=== PATIENT | female | born 1985 | race Caucasian/White ===

== ENCOUNTER 2019-01-15 11:48 | Observation (INO) ==
[2019-01-14 14:43] LABS: Eosinophils % 1.2 %; Hematocrit 35.7 % (35.3-44.9); Hemoglobin 12.1 g/dL (11.5-15.4); Immature Granulocytes % 0.7 % (0-4); Lymphocytes % 23.4 %; Mean Corpuscular HGB Conc 33.9 g/dL (31.6-35.5); Mean Corpuscular Hemoglobin 30.7 pg (28.0-33.3); Mean Corpuscular Volume 90.6 fL (83.0-100.0); Mean Platelet Volume 12.5 fL (9.4-12.4); Monocytes % 8.9 %; Platelet Count 121 K/mcL (140-400); Red Blood Count 3.94 M/mcL (3.82-4.97); Segmented Neutrophils % 65.7 %
[2019-01-14 14:43] LABS: Protein/Creatinine Ratio,Urine 0.16 mg/mg (0.00-0.20)
[2019-01-14 14:44] LABS: Basophils % 0.1 %; Eosinophils # 0.1 K/mcL (0.0-0.6); Lymphocytes # 2.2 K/mcL (0.6-4.6); Monocytes # 0.8 K/mcL (0.0-1.3); Neutrophils # 6.1 K/mcL (1.6-8.9)
[2019-01-14 14:53] LABS: Alanine Aminotransferase 31 Units/L (7-52); Aspartate Amino Transferase 15 Units/L (13-39); BUN/Creatinine Ratio 20 (6-26); Blood Urea Nitrogen 10 mg/dL (6-20); Lactate Dehydrogenase 152 Units/L (140-271); Uric Acid 3.8 mg/dL (2.3-7.6); eGFR For Non-African Americans > 60 (> 60)
--- NOTE | 2019-01-14 16:35 | OB/GYN Progress Note ---
Date of Encounter: 01/14/19 Time of Encounter: 16:31 - Assessment and Plan (1) Gestational hypertension Current Visit: Yes Status: Acute Pre-Eclampsia labs WNL NST reactive Labetalol PO Steroids Continuous monitoring 24 hour urine pending Anticipate discharge home with biweekly NSTs, PO Labetalol, and anticipate delivery at 37 weeks POC per consult with Dr White Qualifiers: Trimester: third trimester Qualified Code(s): O13.3 - Gestational [-induced] hypertension without significant proteinuria, third trimester (2) 34 weeks gestation of Current Visit: Yes Status: Acute (3) NST (non-stress test) reactive Current Visit: Yes Status: Acute (4) Gestational thrombocytopenia without hemorrhage Current Visit: Yes Status: Acute Stable from early Qualifiers: Trimester: third trimester Qualified Code(s): O99.113 - Other diseases of the blood and blood-forming organs and certain disorders involving the immune mechanism complicating , third trimester; D69.6 - Thrombocytopenia, unspecified Subjective - Subjective Principal diagnosis: HTN Interval history: Ms Carmona, dolores at 34 weeks 4 days presents to labor and delivery triage with c/o feeling flushed and contractions every 10 minutes of 3 hours. She has had pre-eclampsia with a 37 week primary with her last (c/s related to corneal transplants). She has had no complications with this . She states positive movement. She denies headaches, vision changes, epigastric pain, leaking of fluid, vaginal discharge and bleeding. Antepartum ROS: movement normal, no loss of fluid, no vaginal bleeding, no contractions Objective - Vital Signs Vital Signs: Intake and Output 01/14/19 01/14/19 01/14/19 07:59 15:59 23:59 Other: Weight 133.3 kg Patient Weight 01/14/19 23:59 Weight 133.3 kg - Exam FHR comments: Irregular contractions FHTs baseline 140's with moderate variability and 15 x 15 accels with no decels. Auscultation: bilateral: normal Abdomen: Present: normal appearance, soft, gravid. Absent: tenderness Uterus: Present: normal. Absent: firm, tenderness Cervical dilation: closed Cervix effacement: thick station: high - Labs Labs: Abnormal lab results Plt Count 121 K/mcL (140-400) L 01/14/19 14:17 MPV 12.5 fL (9.4-12.4) H 01/14/19 14:17 0.51 mg/dL (0.60-1.20) L 01/14/19 14:17 21 mg/dL (1-14) H 01/14/19 14:11
[2019-01-15 09:03] LABS: Amphetamine Screen,Urine Negative ng/mL (Cutoff=1000); Barbiturate Screen,Urine Negative ng/mL (Cutoff=200); Benzodiazepines Screen,Urine Negative ng/mL (Cutoff=200); Cannabinoid Screen,Urine Negative ng/mL (Cutoff = 50); Cocaine Screen,Urine Negative ng/mL (Cutoff= 300); Opiate Screen,Urine Negative ng/mL (Cutoff=300); Phencyclidine Screen,Urine Negative ng/mL (Cutoff=25)
[~2019-01-15 11:48] MED LIST: *HR* Labetalol 20 MG/4 ML SYRINGE IVP STA; Acetaminophen 325 MG TABLET PO PRN; Betamethasone Acet/SodPhos 6 MG/ML MDV IM SCH; Ondansetron ODT 4 MG TAB.RAPDIS SL PRN; Ringers Solution, Lactated 500 ML ONE
[2019-01-15 19:27] LABS: Protein/Creatinine Ratio,Urine 0.11 mg/mg (0.00-0.20)
[2019-01-15 20:52] LABS: Total Volume 24 Hour,Urine 0.7 Liters (0.60-1.60)
== END 2019-01-15 13:28 | disposition home or self-care (01) ==
LOC: 1NENULAB
PROVIDERS: ADMIT Advanced Practice Midwife; ATTEND Advanced Practice Midwife

== ENCOUNTER → 2019-01-15 17:43 | Observation (INO) ==
[~2019-01-15 17:43] MED LIST changes: -*HR* Labetalol 20 MG/4 ML SYRINGE IVP STA; -Acetaminophen 325 MG TABLET PO PRN; -Ondansetron ODT 4 MG TAB.RAPDIS SL PRN; -Ringers Solution, Lactated 500 ML ONE
--- NOTE | 2019-01-21 13:34 | Event Note ---
Date of Encounter: 01/15/19 Time of Encounter: 18:05 Patient arrived solely for second dose of Celestone. Received dose as ordered and was discharged home in satisfactory condition.
== END | disposition home or self-care (01) ==
LOC: 1NENULAB
PROVIDERS: ADMIT Obstetrics & Gynecology; ATTEND Obstetrics & Gynecology

== ENCOUNTER → 2019-01-16 16:42 | Observation (INO) ==
[2019-01-16 11:22] VITALS: BP 177/98
[2019-01-16 11:57] LABS: Amphetamine Screen,Urine Negative ng/mL (Cutoff=1000); Barbiturate Screen,Urine Negative ng/mL (Cutoff=200); Benzodiazepines Screen,Urine Negative ng/mL (Cutoff=200); Cannabinoid Screen,Urine Negative ng/mL (Cutoff = 50); Cocaine Screen,Urine Negative ng/mL (Cutoff= 300); Opiate Screen,Urine Negative ng/mL (Cutoff=300); Phencyclidine Screen,Urine Negative ng/mL (Cutoff=25); Protein/Creatinine Ratio,Urine 0.23 mg/mg (0.00-0.20)
[2019-01-16 12:05] LABS: Basophils % 0.2 %; Hematocrit 32.3 % (35.3-44.9); Hemoglobin 10.8 g/dL (11.5-15.4); Immature Granulocytes % 1.1 % (0-4); Lymphocytes # 1.7 K/mcL (0.6-4.6); Lymphocytes % 16.1 %; Mean Corpuscular HGB Conc 33.4 g/dL (31.6-35.5); Mean Corpuscular Hemoglobin 30.8 pg (28.0-33.3); Mean Platelet Volume 12.7 fL (9.4-12.4); Monocytes # 0.9 K/mcL (0.0-1.3); Monocytes % 8.2 %; Platelet Count 115 K/mcL (140-400); Red Blood Count 3.51 M/mcL (3.82-4.97); Red Cell Distribution Width 12.9 % (11.5-14.5); Segmented Neutrophils % 74.4 %
[2019-01-16 12:08] LABS: Alanine Aminotransferase 34 Units/L (7-52); Aspartate Amino Transferase 16 Units/L (13-39); BUN/Creatinine Ratio 23 (6-26); Blood Urea Nitrogen 13 mg/dL (6-20); Lactate Dehydrogenase 132 Units/L (140-271); Uric Acid 4.2 mg/dL (2.3-7.6); eGFR For Non-African Americans > 60 (> 60)
--- NOTE | 2019-01-16 16:29 | Discharge Summary ---
Outpatient Proc Discharge Plan - Plan Additional Instructions: LABOR AND DELIVERY DISCHARGE INSTRUCTIONS Signs and Symptoms to be Reported to your Doctor Immediately: * Sudden gush, continuous or intermittent lead of fluid from vagina (note the time of gush and color of fluid) * Onset of bright red vaginal bleeding with or without pain (if you had a vaginal exam during this visit you may notice some dark red spotting. This is normal.) * Lower abdominal cramping or backache that is premenstrual-like feeling. * More than 6 contractions in one hour. * Burning during urination, having to urinate more frequently or pain in your mid-back. * A change in the baby's activity. This could be an increase or decrease in activity. * Severe headache which does not go away with tylenol. * Sudden swelling in the face, hands, arms and/or legs. * Upper abdominal pain - sometimes associated with heartburn or nausea and is not relieved by Maalox, Mylanta or Tums. * Dizziness or blurred vision or visual disturbances (seeing stars/lights). * Kick Counts One hour after a meal, lay down on one side in a quiet place. Count the number of santos the baby moves during an hour. If less than 6 movements, notify your physician. Diet: *Force fluids - 8-10 tall glasses of fluid per day. May include popsicles and jello. *Limit caffeine - this includes chocolate, coffee, tea, any soft drink containing such as all maisha, Noah Yellow and Mountain Dew Prescriptions: Labetalol [Trandate] 100 mg PO BID #60 tablet Home Medications: Vitamin Tablet 1 tab PO DAILY 01/14/19 [History] Labetalol [Trandate] 100 mg PO BID #60 tablet 01/16/19 [Rx]
--- NOTE | 2019-01-16 16:31 | OB/GYN Progress Note ---
Date of Encounter: 01/16/19 Time of Encounter: 16:29 - Assessment and Plan (1) 35 weeks gestation of Current Visit: Yes Status: Acute (2) Gestational hypertension Current Visit: Yes Status: Acute Patient started on Labetolol 100 mg po bid with good response. She is to continue this at home. She is again given pre-e precautions and told to call or return for severe headache not relieved by Tylenol, visual changes, RUQ pain, Nausea/vomiting, decreased movement, vaginal bleeding, or leaking fluid. She will followup on Sunday with NST, ultrasound, and visit with Dr. Arana. (3) Gestational thrombocytopenia without hemorrhage Current Visit: No Status: Chronic Stable on labs today Qualifiers: Trimester: third trimester Qualified Code(s): O99.113 - Other diseases of the blood and blood-forming organs and certain disorders involving the immune mechanism complicating , third trimester; D69.6 - Thrombocytopenia, unspecified (4) NST (non-stress test) reactive Current Visit: No Status: Acute Baseline 120, reactive Subjective - Subjective Interval history: Patient presents for complaint of headache. She was seen in the office today and sent over for pre-e labs and evaluation with prolonged monitoring. She states her headache has resolved with the tylenol. She also reports the headache was not as severe as one she had experienced earlier this week. She denies any leaking fluid or vaginal bleeding. She reports good movement. Antepartum ROS: movement normal, no loss of fluid, no vaginal bleeding, no contractions Objective - Vital Signs Vital Signs: Vital Signs Temp Pulse Resp BP 01/16/19 11:19 98.7 F 103 20 see OB flow sheet Intake and Output 01/16/19 01/16/19 01/16/19 07:59 15:59 23:59 Other: Weight 133.6 kg Patient Weight 01/16/19 23:59 Weight 133.6 kg - Exam FHR: category 1 - Labs Labs: Abnormal lab results RBC 3.51 M/mcL (3.82-4.97) L 01/16/19 11:30 Hgb 10.8 g/dL (11.5-15.4) L 01/16/19 11:30 Hct 32.3 % (35.3-44.9) L 01/16/19 11:30 Plt Count 115 K/mcL (140-400) L 01/16/19 11:30 MPV 12.7 fL (9.4-12.4) H 01/16/19 11:30 0.57 mg/dL (0.60-1.20) L 01/16/19 11:30 132 Units/L (140-271) L 01/16/19 11:30 Protein/Creatinin Ratio 0.23 mg/mg (0.00-0.20) H 01/16/19 11:30 38 mg/dL (1-14) H 01/16/19 11:30 - Allied health notes Allied health notes reviewed: nursing
[~2019-01-16 16:42] MED LIST changes: +Acetaminophen 325 MG TABLET PO ONE; -Betamethasone Acet/SodPhos 6 MG/ML MDV IM SCH
== END | disposition home or self-care (01) ==
LOC: 1NENULAB
PROVIDERS: ADMIT Advanced Practice Midwife; ATTEND Advanced Practice Midwife

== ENCOUNTER 2019-02-02 07:00 | Inpatient (IN) ==
[2019-02-02] MEDS ORDERED: CeFAZolin Syr 3,000MG/30 ML 3,000 MG/30 ML SYRINGE IVPB ONE (07:24)
[2019-02-02] MEDS ORDERED: Naloxone 0.4 MG/ML INJ IVP PRN (07:24)
[2019-02-02] MEDS ORDERED: Famotidine 20 MG/2 ML VIAL IVP PRN (07:24)
[2019-02-02] MEDS ORDERED: Ringers Solution, Lactated 1,000 ML IVC ONE (07:24)
[2019-02-02] MEDS ORDERED: Metoclopramide 10 MG/2 ML VIAL IVP PRN ×2 (07:24→13:45)
--- NOTE | 2019-02-02 08:24 | History & Physical Report ---
Date of Encounter: 02/02/19 Time of Encounter: 08:16 24 Hour HP Update - Instructions Instructions: If the History and Physical is less than 30 days old and was completed prior to A.M. admission and or procedure and has NOT been updated on calendar day of procedure please complete this update prior to performing procedure. - Update Patient reports changes in Medical Condition: No Changes in examination, assessment, or condition: No Changes in Medication: No Preop tests/diagnostics Reviewed: No Pre-Op MRSA Screen: Negative Surgery Remains Indicated: No Consent for Planned Operative Procedure(s) Verified: No - Pre-Operative Checklist Preoperative Checklist Indicated: Yes Prophylactic Antibiotic Ordered: Yes Home Medications Include Beta Igor: Yes (labetalol) Beta Igor Taken Yesterday (Day Prior to Surgery): Yes Is VTE Prophylaxis Indicated?: NO - Attending Attestation 33yo at 37+0wks GA, hx of prior CS, presents today for scheduled repeat low transverse delivery with tubal ligation. Patient with complicated starting at 35wks GA. Seen by Dr. White in triage on 01/16/2019 (see [employer] documentation from this date), and found to have severe range BP. Patient was started on Labetalol throughout her stay and was admitted overnight for continuous monitoring. PIH labs were performed and were negative, therefore the diagnosis of gHTN was given to the patient. Aside from elevated BP, she denied CLAY/RUQP, and increased swelling in upper and lower extremities at that time. Although her BP was high, she did not meet criteria for PreE without severe features but was discharged home to complete 24hr urine. She was then seen by me, the following Sunday after she was discharged to home on Labetalol - and her 24hr urine was completed. Results from her 24hr urine was 140mg (over 24hr period), again, not diagnostic for PreE by any means. Elevated BP requiring any form of po maintanence medication without si/sx of PreE and negative PreE labs lead us to the confirmed diagnosis of Gestational Hypertension of . PER [facility] GUIDELINES IT IS RECOMMENDED FOR PATIENTS WITH GESTATIONAL HYPERTENSION TO BE DELIVERED BETWEEN 37-38WKS GA. THE PATIENT HAD A 36WK 3RD TM US PERFORMED SHOWING APPROPRIATE FLUID AND FETUS MEASURING >90TH %ILE. THE PATIENT ALSO DESIRED TUBAL LIGATION, SHE HAS THE APPROPRIATE INSURANCE TO DO SO TODAY WELL. Patient has been taking her medication and has otherwise been normotensive in the office while taking her prescribed labetalol. Patient was seen by anesthesia and myself prior to proceeding with scheduled rLTCS and BPS. MD HAL
[2019-02-02 08:46] LABS: Basophils % 0.1 %; Eosinophils # 0.1 K/mcL (0.0-0.6); Eosinophils % 1.2 %; Hematocrit 33.1 % (35.3-44.9); Hemoglobin 11.2 g/dL (11.5-15.4); Immature Granulocytes % 0.7 % (0-4); Lymphocytes # 1.7 K/mcL (0.6-4.6); Lymphocytes % 21.2 %; Mean Corpuscular HGB Conc 33.8 g/dL (31.6-35.5); Mean Corpuscular Hemoglobin 30.8 pg (28.0-33.3); Mean Corpuscular Volume 90.9 fL (83.0-100.0); Mean Platelet Volume 12.3 fL (9.4-12.4); Monocytes # 0.7 K/mcL (0.0-1.3); Monocytes % 8.1 %; Neutrophils # 5.6 K/mcL (1.6-8.9); Platelet Count 116 K/mcL (140-400); Red Blood Count 3.64 M/mcL (3.82-4.97); Red Cell Distribution Width 13.1 % (11.5-14.5); Segmented Neutrophils % 68.7 %
--- NOTE | 2019-02-02 08:49 | Anesthesia Evaluation PreOp ---
Date of Encounter: 02/02/19 Time of Encounter: 08:46 - Past History Planned Operation: repeat csection Cardiac History: HTN (gestational htn with severe features) Pulmonary History: Denies Any Significant HX LACEWORKER History: Denies Any Significant HX Other Medical History: Denies Any Significant HX Anesthesia History: No Prior Anesthetic Complications, Past Anesthesia : Yes ( 37 weeks) Alcohol Use: none Drug use: none Medications and Allergies Vitamin Tablet 1 tab PO DAILY 01/14/19 [History] Labetalol [Trandate] 100 mg PO TID 02/02/19 [History] Allergy/AdvReac Type Severity Reaction Status Date / Time hydrocodone Allergy Anaphylaxis Verified 01/14/19 13:56 Sulfa (Sulfonamide Allergy Rash Verified 01/14/19 13:56 Antibiotics) - Meds/Allergy Pre-op Review Allergies Reviewed: Yes Beta Blockers on Current Med List: Yes If Beta Blockers taken, Date/Time (Last Dose taken): 0500 02/02 Anesthesia Results - Labs Labs pending, will review prior to proceeding Anesthesia Exam Height: 67 Weight: 298 NPO (# of Hours): greater than 8 hours - HEENT Pupil (Motor): Pupils equal Mallampati: I Teeth: Normal Oral Opening: Greater than 3 - LACEWORKER LOC: Oriented LACEWORKER Motor: Normal RUE, Normal LUE, Normal RLE, Normal LLE, Normal Face LACEWORKER Sensory: Normal: RUE, LUE, RLE, LLE, Face - Cardiac Rhythm: Regular Murmur: None JVD: No Carotid Bruit: No - Pulmonary Breath Sounds: bilateral Clear Respiratory Effort: Symmetrical Anesthesia Assess/Plan ASA Score: 3 Level of consciousness: Cooperative Anesthetic Plan: General (Plan B), Spinal (Plan A.) Monitoring Plan: Standard Monitors Recovery Plan: PACU
[2019-02-02 08:55] LABS: Protein/Creatinine Ratio,Urine 0.14 mg/mg (0.00-0.20)
[2019-02-02] MEDS ORDERED: Ringers Solution, Lactated 1,000 ML ONE ×2 (08:56→10:42)
--- NOTE | 2019-02-02 09:02 | OB/GYN Procedure Note ---
Section - Date of procedure: 02/02/19 Preop diagnosis: desires repeat Post-op diagnosis: same Procedure: repeat low transverse Surgeon: Lawrence Montiel Quantitated Blood Loss: 500 Was there an physical therapy assistant instructor present: No Anesthesia Type: Spinal section complications: none Disposition: L&D Recovery Room Specimens: Placenta, Cord blood, Right tube segment, Left tube segment - Infant (s) Infant A Delivery Date: 02/02/19 Presentation: breech, bear breech Gender: Male Viability: Viable Pounds: 8 Ounces: 0 at 1 minute: 8 at 5 minutes: 9 Specimens collected: cord blood Placenta: spontaneous - Narrative Narrative: OPERATIVE REPORT: PATIENT NAME: JT GARCIA : 1985 PRE-OPERATIVE DIAGNOSIS: 1. 37+0 WEEKS GESTATION, FULL TERM 2. GESTATIONAL HYPERTENSION 3. HISTORY OF LOW TRANSVERSE DELIVERY X1 4. BILATERAL TUBAL LIGATION 5. BREECH PRESENTATION 6. EFW > 90TH %ILE POST-OPERATIVE DIAGNOSIS: 1. 37+0 WEEKS GESTATION, FULL TERM 2. GESTATIONAL HYPERTENSION 3. HISTORY OF LOW TRANSVERSE DELIVERY X1 4. BILATERAL TUBAL LIGATION 5. BREECH PRESENTATION 6. MALE PROCEDURE: REPEAT LOW TRANSVERSE DELIVERY AT 37+0 WEEKS GA WITH BILATERAL TUBAL LIGATION SPECIMENS: 1. PLACENTA 2. CORD BLOOD EBL: 500mL IVF: 1500 mL UOP: 250mL PROCEDURE: PATIENT WAS CONSENTED APPROPRIATELY FOR REPEAT DELIVERY WITH BILATERAL TUBAL LIGATION. ALL RISKS WERE DISCUSSED INCLUDING BUT NOT LIMITED TO INFECTION, BLOOD LOSS, HYSTERECTOMY, OOPHORECTOMY, AND MATERNAL MORTALITY. ALL CONSENTS WERE SIGNED BY PATIENT AND PHYSICIAN PRIOR TO ENTRY TO THE OPERATING ROOM. THE PATIENT WAS TAKEN TO OR-A WHERE SPINAL ANESTHESIA WAS FOUND TO BE ADEQUATE. THE PATIENT WAS THEN PREPPED AND DRAPED IN THE USUAL STERILE FASHION. TIME OUT WAS PERFORMED AND ALL TEAMS AGREED WITH THE DIAGNOSIS, PROCEDURE, AND ALLERGIES OF PATIENT. WAS BROUGHT INTO ROOM IN STERILE FASHION AND WAS WITH PATIENT AND ANESTHESIA. A PFANNENSTIEL SKIN INCISION WAS PERFORMED, AND CARRIED DOWN TO THE LEVEL OF FASCIA. WE SCORED THE FASCIA AT THE MIDLINE, AND USING THOMAS SCISSORS WITH ESTELA PICK-UPS, EXTENDED EACH SIDE LATERALLY TAKING CAUTION TO ALL VASCULATURE. ALL VESSELS THAT WERE ACTIVE WERE CAUTERIZED USING BIPOLAR CAUTERY (BOVIE). WE THEN USED TWO NIKOLE CLAMPS AND DISSECTED THE FASCIA SUPERIORLY FROM THE RECTUS MUSCLE, AND INFERIORLY FROM THE PYRIMIDALIS MUSCLES. WE THEN THE RECTUS ABDOMINIS MUSCLE ALONG THE MIDLINE BLUNTLY, AND ENTERED THE PERITONEUM. CLEAR FLUID WAS APPRECIATD. NIKOLE CLAMPS WERE REMOVED, AND THE BLADDER BLADE WAS THEN PLACED TO ENSURE VISIBILITY OF THE LOWER UTERINE SEGMENT. LARGE RICH WAS PLACED SUPERIORLY TO HOLD BACK THE RECTUS AND ENSURE ADEQUATE VISIBILITY OF THE SURGICAL FIELD. BLADDER REFLECTION WAS APPRECIATED, WE ATTEMPTED A BLADDER FLAP. THE BLADDER BLADE WAS THEN REPLACED, PUSHING THE BLADDER INFERIORLY AND OUT OF THE WAY OF INTENDED HYSTEROTOMY. ALL BOWEL AND OMENTUM WAS DISPLACED TO ENSURE ADEQUATE VISIBILITY. A LOW TRANSVERSE HYSTEROTOMY WAS PERFORMED, AND CLEAR AMNIOTIC FLUID WAS APPRECIATED. BABY WAS FOUND TO BE IN THE BREECH PRESENTATION, WE DELIVERED THE IN THE USUAL FASHION. USING ADEQUATE FUNDAL PRESSURE, HEAD WAS DELIVERED ATRAUMATICALLY. CORD WAS NORMAL. THE CORD WAS THEN CLAMPED AND CUT, AND CORD BLOOD WAS COLLECTED. WE DID NOT COLLECT CORD GASES THE INFANT WAS VIGOROUS AND CRYING THE INFANT WAS THEN HANDED OFF TO THE WARMER WITH NURSERY STAFF. ATTENTION WAS THEN TURNED BACK TO THE UTERUS WE DELIVERED THE PLACENTA WITH GENTLE TRACTION. WE THEN EXTE RIORIZED THE UTERUS AND CLEARED THE ENDOMETRIAL CAVITY OF ALL CLOT AND DEBRIS. RINGED FORCEPS WERE PLACED ON EITHER ANGLE OF THE HYSTEROTOMY. USING 0-VICRYL, WE CLOSED THE HYSTEROTOMY IN THE RUNNING, LOCKED FASHION. HEMOSTASIS WAS APPRECIATED. ATTENTION WAS THEN TURNED TO THE L FALLOPIAN TUBE WHERE WE PERFORMED A TUBAL LIGATION USING [place] TECHNIQUE. L TUBAL SEGMENT WAS REMOVED, LABELED, AND SENT TO PATHOLOGY. SITES OF TUBAL RESECTION WERE HEMOSTATIC. WE THEN PERFORMED THE SAME PROCEDURE ON THE CONTRALATERAL (R) FALLOPIAN TUBE. R TUBAL SEGMENT WAS LABELED AND SENT TO PATHOLOGY. SITES OF TUBAL RESECTION WERE AGAIN VISUALIZED, AND FOUND TO BE HEMOSTATIC. WE PLACED THE UTERUS BACK INTO THE ABDOMEN, AND RE-EXAMINED THE HYSTEROTOMY TO ENSURE ADEQUATE HEMOSTASIS. WE NOTED HEMOSTASIS AND PROCEEDED TO CLOSE THE FASCIA USING STRATAFIX SUTURE. THE FASCIA WAS CLOSED IN THE USUAL FASHION. HEMOSTASIS WAS APPRECIATED, WE THEN USING PLAIN CUT SUTURE TO CLOSE THE SUBCUTANEOUS FAT PRIOR TO CLOSING THE PFANNENSTIEL SUBCUTICULAR SKIN INCISION. SKIN WAS CLOSED USING 4-0 MONOCRYL IN THE RUNNING FASHION. ALL COUNTS WERE CORRECT X3. HEMOSTASIS WAS APPRECIATED, PATIENT WAS STABLE. WEIGHT: 8#OZ. APGARS: 8/9 MALE TIME OF DELIVERY: 0956 I WAS PRESENT FOR THE ENTIRETY OF THE PROCEDURE. LAWRENCE MONTIEL MD OBGYN, [facility]
[2019-02-02 09:05] LABS: Alanine Aminotransferase 61 Units/L (7-52); Aspartate Amino Transferase 25 Units/L (13-39); BUN/Creatinine Ratio 22 (6-26); Blood Urea Nitrogen 13 mg/dL (6-20); Lactate Dehydrogenase 147 Units/L (140-271); eGFR For Non-African Americans > 60 (> 60)
[2019-02-02] MEDS ORDERED: *HR* Morphine Sulfate/PF 10 MG/10 ML AMPUL ONE (09:08)
[2019-02-02] MEDS ORDERED: *HR* Oxytocin 10 UNIT/ML VIAL IM ONE ×2 (09:09→10:42)
[2019-02-02] MEDS ORDERED: Bupivacaine/PF 0.75% in Dex 2 ML AMPUL INFILT ONE (09:09)
[2019-02-02] MEDS ORDERED: *HR* Phenylephrine 10 MG/ML VIAL ONE (09:19)
[2019-02-02] MEDS ORDERED: Ketorolac 15 MG/ML VIAL IVP ONE ×2 (09:48→13:45)
[2019-02-02] MEDS ORDERED: Ondansetron 4 MG/2 ML VIAL IVP ONE (09:48)
[2019-02-02 10:10] LABS: Amphetamine Screen,Urine Negative ng/mL (Cutoff=1000); Barbiturate Screen,Urine Negative ng/mL (Cutoff=200); Benzodiazepines Screen,Urine Negative ng/mL (Cutoff=200); Cannabinoid Screen,Urine Negative ng/mL (Cutoff = 50); Cocaine Screen,Urine Negative ng/mL (Cutoff= 300); Opiate Screen,Urine Negative ng/mL (Cutoff=300); Phencyclidine Screen,Urine Negative ng/mL (Cutoff=25)
[2019-02-02] MEDS ORDERED: Ketorolac 30 MG/ML VIAL IVP ONE (12:30)
[2019-02-02] MEDS ORDERED: Oxytocin 20 units/ LR 1000 mL 20 UNIT/1,000 ML BAG IVC ONE (12:41)
[2019-02-02] MEDS ORDERED: Ringers Solution, Lactated 1,000 ML IVC SCH (13:45)
[2019-02-02] MEDS ORDERED: *HR* OxyCODONE/APAP 5/325 TABLET PO PRN (13:45)
[2019-02-02] MEDS ORDERED: Simethicone 80 MG TAB.CHEW PO PRN (13:45)
[2019-02-02] MEDS ORDERED: Sennosides 8.6 MG TABLET PO PRN (13:45)
[2019-02-02] MEDS ORDERED: Oxytocin 20 units/ LR 1000 mL 20 UNIT/1,000 ML BAG IVC SCH (13:45)
[2019-02-02] MEDS ORDERED: Rho Immune Globulin 1,500 UNIT SYRINGE IM ONE (13:45)
[2019-02-02] MEDS ORDERED: Ondansetron 4 MG/2 ML VIAL IVP PRN (13:45)
[2019-02-02] MEDS: Ibuprofen 600 MG TABLET PO PRN (20:33)
[2019-02-03] MEDS: traMADol 50 MG TABLET PO SCH ×4 (01:22→17:49)
--- NOTE | 2019-02-03 08:31 | OB/GYN Progress Note ---
Date of Encounter: 02/03/19 Time of Encounter: 08:29 - Assessment and Plan (1) Status post primary low transverse section Current Visit: Yes Status: Acute Continue routine postop/ care anticipate discharge home tomorrow Subjective - Subjective Principal diagnosis: status postop day 1 primary c/s breech/Gestational HTN Interval history: Patient is a 33 y/o postop day 1 primary c/s for breech presentation and gestational HTN. Patient is currently not on BP medications and BPs are within normal range. Patient denies headache, visual disturbances or epigastric pain. Patient denies any needs at this time. Patient is sitting up in chair eating breakfast. Patient reports: appetite normal, voiding normally, pain well controlled, ambulating normally : doing well, bottle feeding Objective - Vital Signs Latest vital signs: Vital Signs Temp Pulse Resp BP Pulse Ox 02/03/19 06:30 98.3 F 94 14 119/74 96 02/03/19 01:12 98.6 F 88 14 130/80 97 02/02/19 20:20 98.1 F 90 14 143/98 96 02/02/19 16:30 97.1 F L 72 14 124/85 98 02/02/19 15:30 97.8 F 80 14 106/70 96 02/02/19 14:30 98.0 F 74 14 131/89 97 02/02/19 14:00 97.4 F L 71 14 126/87 96 02/02/19 13:31 97.8 F 76 14 134/88 97 Intake and Output 02/02/19 02/03/19 02/03/19 23:59 07:59 15:59 Intake Total 700 / 700 400 / 400 Output Total 1600 / 1600 1600 / 1600 Balance -900 / -900 -1200 / -1200 Intake: Oral 700 / 700 400 / 400 Output: Urine 1000 / 1000 Catheter 600 / 600 1600 / 1600 Other: Weight 133.441 kg Patient Weight 02/03/19 23:59 Weight 133.441 kg - Exam Lungs: bilateral: normal Extremities: Present: normal Abdomen: Present: normal appearance, soft Incision: Present: normal, dry, dressed (TAWANDA) Uterus: Present: normal, firm Fundal Height: 2 (U/2) - Labs Labs: Laboratory Results - last 24 hr 05/26/19 05/26/19 05/26/19 08:15 08:15 08:15 WBC 8.2 RBC 3.64 L Hgb 11.2 L Hct 33.1 L MCV 90.9 MCH 30.8 MCHC 33.8 RDW 13.1 Plt Count 116 L MPV 12.3 Immature Gran % 0.7 Seg Neutrophils % 68.7 Lymphocytes % 21.2 Monocytes % 8.1 Eosinophils % 1.2 Basophils % 0.1 Neutrophils # 5.6 Lymphocytes # 1.7 Monocytes # 0.7 Eosinophils # 0.1 Basophils # 0.0 BUN Creatinine Est GFR ( Amer) Est GFR (Non-Af Amer) BUN/Creatinine Ratio Uric Acid AST ALT Lactate Dehydrogenase Urine Creatinine 146 Protein/Creatinin Ratio 0.14 Urine Total Protein 20 H Urine Opiates Screen Negative Ur Barbiturates Screen Negative Ur Phencyclidine Scrn Negative Ur Amphetamines Screen Negative U Benzodiazepines Scrn Negative Urine Cocaine Screen Negative U Marijuana (THC) Screen Negative Ur Drug Screen Interp See Below 02/02/19 08:15 WBC RBC Hgb Hct MCV MCH MCHC RDW Plt Count MPV Immature Gran % Seg Neutrophils % Lymphocytes % Monocytes % Eosinophils % Basophils % Neutrophils # Lymphocytes # Monocytes # Eosinophils # Basophils # BUN 13 Creatinine 0.59 L Est GFR ( Amer) > 60 Est GFR (Non-Af Amer) > 60 BUN/Creatinine Ratio 22 Uric Acid 5.0 AST 25 ALT 61 H Lactate Dehydrogenase 147 Urine Creatinine Protein/Creatinin Ratio Urine Total Protein Urine Opiates Screen Ur Barbiturates Screen Ur Phencyclidine Scrn Ur Amphetamines Screen U Benzodiazepines Scrn Urine Cocaine Screen U Marijuana (THC) Screen Ur Drug Screen Interp
[2019-02-03] MEDS: Ibuprofen 600 MG TABLET PO PRN ×3 (08:55→21:00)
[2019-02-03] MEDS: Prenatal Vit/FA 1 EACH TABLET PO SCH (08:55)
[2019-02-03 13:09] LABS: Basophils % 0.1 %; Eosinophils # 0.1 K/mcL (0.0-0.6); Eosinophils % 0.8 %; Hematocrit 30.1 % (35.3-44.9); Hemoglobin 10.2 g/dL (11.5-15.4); Immature Granulocytes % 0.4 % (0-4); Lymphocytes # 1.4 K/mcL (0.6-4.6); Lymphocytes % 15.5 %; Mean Corpuscular HGB Conc 33.9 g/dL (31.6-35.5); Mean Corpuscular Hemoglobin 30.8 pg (28.0-33.3); Mean Corpuscular Volume 90.9 fL (83.0-100.0); Mean Platelet Volume 12.2 fL (9.4-12.4); Monocytes # 0.6 K/mcL (0.0-1.3); Monocytes % 6.8 %; Neutrophils # 6.9 K/mcL (1.6-8.9); Platelet Count 120 K/mcL (140-400); Red Blood Count 3.31 M/mcL (3.82-4.97); Red Cell Distribution Width 13.2 % (11.5-14.5); Segmented Neutrophils % 76.4 %
[2019-02-04] MEDS: traMADol 50 MG TABLET PO SCH ×3 (00:25→11:43)
[2019-02-04] MEDS: Ibuprofen 600 MG TABLET PO PRN ×2 (04:50→11:43)
[2019-02-04 07:03] LABS: Red Cell Distribution Width 13.2 % (11.5-14.5)
[2019-02-04 07:05] LABS: Hematocrit 28.5 % (35.3-44.9); Hemoglobin 9.4 g/dL (11.5-15.4); Immature Platelets 6.9 % (1.1-6.1); Mean Corpuscular Hemoglobin 30.4 pg (28.0-33.3); Mean Corpuscular Volume 92.2 fL (83.0-100.0); Mean Platelet Volume 12.3 fL (9.4-12.4); Red Blood Count 3.09 M/mcL (3.82-4.97)
[2019-02-04 07:58] VITALS: BP 139/91
[2019-02-04] MEDS: Prenatal Vit/FA 1 EACH TABLET PO SCH (08:30)
--- NOTE | 2019-02-04 10:17 | Discharge Summary ---
Date of Encounter: 02/04/19 Time of Encounter: 10:15 - Discharge Diagnosis (1) Status post primary low transverse section Priority: Primary Status: Acute Comments: Meeting milestones as expected. Bleeding minimal, no large clots noted. Pain well controlled on prescribed medications. Tolerating diet. Urinating without difficulty. Passing gas, no BM yet. Ambulating without difficulty. Plan for discharge today. (2) Gestational hypertension Priority: Secondary Status: Acute Comments: BP 116-147/74-92 in past 24 hours. Denies CLAY, visual changes, RUQ pain Does not require BP medication for discharge. Will f/u in the office in 4-6 weeks. 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 Comments: Plt 116 on adm, 102 today Expected to resolve, f/u in the office Qualifiers: Trimester: third trimester Qualified Code(s): O99.113 - Other diseases of the blood and blood-forming organs and certain disorders involving the immune mechanism complicating , third trimester; D69.6 - Thrombocytopenia, unspecified (4) anemia Priority: Secondary Status: Acute Comments: Hgb 11.2 on adm, 9.4 today Continue iron supplementation QD - Discharge Medications Prescriptions: New Docusate [Colace] 100 mg PO BID #60 capsule Ferrous Sulfate 325 mg PO 0800 #30 tablet Ibuprofen [Motrin] 600 mg PO Q6HR PRN #40 tablet PRN Reason: Cramping Tramadol HCl [Ultram] 50 mg PO Q6H PRN 5 Days #20 tab PRN Reason: Moderate Pain Continued Vitamin Tablet 1 tab PO DAILY Discontinued Labetalol [Trandate] 100 mg PO TID Home Medications: Vitamin Tablet 1 tab PO DAILY 01/14/19 [History] Docusate [Colace] 100 mg PO BID #60 capsule 02/04/19 [Rx] Ferrous Sulfate 325 mg PO 0800 #30 tablet 02/04/19 [Rx] Ibuprofen [Motrin] 600 mg PO Q6HR PRN #40 tablet 02/04/19 [Rx] Tramadol HCl [Ultram] 50 mg PO Q6H PRN 5 Days #20 tab 02/04/19 [Rx] Allergies/Adverse Reactions: Allergy/AdvReac Type Severity Reaction Status Date / Time hydrocodone Allergy Anaphylaxis Verified 01/14/19 13:56 Sulfa (Sulfonamide Allergy Rash Verified 01/14/19 13:56 Antibiotics) Data Procedures and tests throughout hospitalization: Laboratory Tests 02/02/19 02/02/19 02/02/19 08:15 08:15 08:15 WBC 8.2 RBC 3.64 L Hgb 11.2 L Hct 33.1 L MCV 90.9 MCH 30.8 MCHC 33.8 RDW 13.1 Plt Count 116 L MPV 12.3 Immature Gran % 0.7 Seg Neutrophils % 68.7 Lymphocytes % 21.2 Monocytes % 8.1 Eosinophils % 1.2 Basophils % 0.1 Neutrophils # 5.6 Lymphocytes # 1.7 Monocytes # 0.7 Eosinophils # 0.1 Basophils # 0.0 Immature Plt Fraction BUN Creatinine Est GFR ( Amer) Est GFR (Non-Af Amer) BUN/Creatinine Ratio Uric Acid AST ALT Lactate Dehydrogenase Urine Creatinine 146 Protein/Creatinin Ratio 0.14 Urine Total Protein 20 H Urine Opiates Screen Negative Ur Barbiturates Screen Negative Ur Phencyclidine Scrn Negative Ur Amphetamines Screen Negative U Benzodiazepines Scrn Negative Urine Cocaine Screen Negative U Marijuana (THC) Screen Negative Ur Drug Screen Interp See Below 02/02/19 02/03/19 02/04/19 08:15 12:55 06:14 WBC 9.1 7.9 RBC 3.31 L 3.09 L Hgb 10.2 L 9.4 L Hct 30.1 L 28.5 L MCV 90.9 92.2 MCH 30.8 30.4 MCHC 33.9 33.0 RDW 13.2 13.2 Plt Count 120 L 102 L MPV 12.2 12.3 Immature Gran % 0.4 Seg Neutrophils % 76.4 Lymphocytes % 15.5 Monocytes % 6.8 Eosinophils % 0.8 Basophils % 0.1 Neutrophils # 6.9 Lymphocytes # 1.4 Monocytes # 0.6 Eosinophils # 0.1 Basophils # 0.0 Immature Plt Fraction 6.9 H BUN 13 Creatinine 0.59 L Est GFR ( Amer) > 60 Est GFR (Non-Af Amer) > 60 BUN/Creatinine Ratio 22 Uric Acid 5.0 AST 25 ALT 61 H Lactate Dehydrogenase 147 Urine Creatinine Protein/Creatinin Ratio Urine Total Protein Urine Opiates Screen Ur Barbiturates Screen Ur Phencyclidine Scrn Ur Amphetamines Screen U Benzodiazepines Scrn Urine Cocaine Screen U Marijuana (THC) Screen Ur Drug Screen Interp Labs on day of discharge: Labs from last 24 hours 02/04/19 02/03/19 06:14 12:55 WBC 7.9 9.1 RBC 3.09 L 3.31 L Hgb 9.4 L 10.2 L Hct 28.5 L 30.1 L MCV 92.2 90.9 MCH 30.4 30.8 MCHC 33.0 33.9 RDW 13.2 13.2 Plt Count 102 L 120 L MPV 12.3 12.2 Immature Gran % 0.4 Seg Neutrophils % 76.4 Lymphocytes % 15.5 Monocytes % 6.8 Eosinophils % 0.8 Basophils % 0.1 Neutrophils # 6.9 Lymphocytes # 1.4 Monocytes # 0.6 Eosinophils # 0.1 Basophils # 0.0 Immature Plt Fraction 6.9 H Date of admission: 02/02/19 07:11 Primary care physician: PCP NONE Discharging clinician: Marga Blue Anticipated date of discharge: 02/04/19 - Patient Status Disposition: Home, Self-Care Condition: Good Functional capacity at discharge: independent ambulation Overall status at discharge: patient is progressing back to baseline - Discharge Instructions Follow Up With: NONE,PCP [Primary Care Provider] - - Diet and Activity Activity: increase activity as tolerated Diet: advance to your usual diet Hospital Course Reason for admission: section Delivery: section Episiotomy: none Laceration: none Other procedures: tubal ligation complications: none baby: male Hospital course: - Date of procedure: 02/02/19 Preop diagnosis: desires repeat Post-op diagnosis: same Procedure: repeat low transverse Surgeon: Marga Arana Quantitated Blood Loss: 500 Was there an finance assistant present: No Anesthesia Type: Spinal section complications: none Disposition: L&D Recovery Room Specimens: Placenta, Cord blood, Right tube segment, Left tube segment - Infant (s) Infant A Infant Delivery Date: 02/02/19 Presentation: breech, bear breech Gender: Male Viability: Viable Pounds: 8 Ounces: 0 at 1 minute: 8 at 5 minutes: 9 Specimens collected: cord blood Placenta: spontaneous Time Attestation: Total time spent providing and/or coordinating discharge services: - VTE Documentation of Mechanical Device: Intermittent pneumatic compression device - Attending Attestation I have seen this patient and agree with the assessment. Rogelio Blue CNM Exam - Constitutional Vitals: Temp Pulse Resp BP Pulse Ox 97.8 F 91 16 139/91 98 02/04/19 07:57 02/04/19 07:57 02/04/19 07:57 02/04/19 07:57 02/04/19 07:57 General appearance IM: A&O X 3, pleasant, no acute distress - Respiratory Respiratory exam: Present: CTAB. Absent: respiratory distress, wheezes - Cardiovascular Cardiovascular exam IM: Present: RRR, +S1, +S2. Absent: diastolic murmur, systolic murmur - GI/Abdominal GI/Abdominal exam IM: hypoactive bowel sounds, soft Incision: dry, intact - Uterine Tone: Firm Uterus Position: 2 Fingers Below Umbilicus - Extremities Exam Extremities exam IM: Present: pedal edema (non-pitting). Absent: calf tenderness, warm - Neurological Exam Neurological exam: no focal deficits - Psychiatric Additional comments: Mood and affect appropriate
== END 2019-02-04 12:35 | disposition home or self-care (01) | DRG 784 ==
LOC: 1NENULAB 07:11 → 1NENUOBS 13:30
PROVIDERS: ADMIT Student in an Organized Health Care Education/Training Program; ATTEND Student in an Organized Health Care Education/Training Program